=== PATIENT | female | born 1955 | race Caucasian/White ===

== ENCOUNTER 2017-01-10 05:46 | Emergency (ER) | payer OTHER ==
[~2017-01-10] VITALS: Ht 165.1 cm; Wt 61.0 kg
[~2017-01-10 05:46] MED LIST: ESTR1TAB15 PO; FLUO20CA19 PO; HYDR-3240 PO; HYDR25TA6 PO; LISI-170 PO; OMEP-110 PO; PROG100C2 PO
[2017-01-10] MEDS ORDERED: HYDROmorphone 1 MG/ML, 1ML ONE (06:21)
[2017-01-10] MEDS ORDERED: DIAZEPAM 5 MG TABLET ONE (06:22)
[2017-01-10] MEDS ORDERED: KETOROLAC 30 MG/1 ML ONE (06:22)
[2017-01-10] MEDS ORDERED: HYDROmorphone 1 MG/ML, 1ML IM ONE (06:30)
[2017-01-10] MEDS ORDERED: KETOROLAC 30 MG/1 ML IM ONE (06:30)
[2017-01-10] MEDS ORDERED: DIAZEPAM 5 MG TABLET PO ONE (06:30)
[2017-01-10 07:12] VITALS: BP 123/70
== END 2017-01-10 08:07 | disposition home or self-care (01) ==
LOC: ED 06:37
DX: M46.1 Sacroiliitis, not elsewhere classified (principal); I10 Essential (primary) hypertension; M54.30 Sciatica, unspecified side
CPT/HCPCS: 96372; 99284; J1170; J1885